=== PATIENT | female | born 1950 | race Caucasian/White ===

== ENCOUNTER 2019-09-20 08:20 | Outpatient (CLI) | payer MEDICARE, SELFPAY ==
--- NOTE | ~2019-09-20 | XR_ITS ---
EXAMINATION: XR knee RT min 4V DATE: 09/20/2019 09:19 INDICATION: Right knee pain and swelling. TECHNIQUE: 4 views of right knee were obtained. COMPARISON: None. FINDINGS: Bone alignment is normal. No fracture. There is mild tricompartmental osteoarthritis. There is a small knee joint effusion. IMPRESSION: 1. Mild right knee osteoarthritis. 2. Small right knee joint effusion. Reviewed, dictated and finalized at location A.
== END 2019-09-20 08:21 | disposition home or self-care (01) ==
PROVIDERS: PCP Family Medicine; Visit Provider Family Medicine
DX: M25.561 Pain in right knee (principal); M79.89 Other specified soft tissue disorders; M17.11 Unilateral primary osteoarthritis, right knee; M25.461 Effusion, right knee
CPT/HCPCS: 73564

== ENCOUNTER → 2021-12-21 13:16 | Outpatient (CLI) | payer MEDICARE, SELFPAY ==
--- NOTE | ~2021-12-21 | DEXA_ITS ---
Bone Density Report Name: DENG DOWLING Age: 71 Sex: Female Ethnicity: White Date of : 1950 Indication: postmenopausal; screening for osteoporosis; height loss; hysterectomy; Referring Provider: ALONSO CHACKO Study: Bone densitometry was performed. Exam Date: December 21, 2021 Accession number: [id number] Bone Density: Region BMD T-score Z-score Classification AP Spine (L1-L4) 0.825 -2.0 0.1 Osteopenia Femoral Neck (Left) 0.670 -1.6 0.2 Osteopenia Total Hip (Left) 0.783 -1.3 0.2 Osteopenia Femoral Neck (Right) 0.727 -1.1 0.7 Osteopenia Total Hip (Right) 0.792 -1.2 0.3 Osteopenia Total Hip Mean 0.788 -1.3 0.3 Osteopenia World Health Organization criteria for BMD impression classify patients as: Normal (T-score at or above -1.0), Osteopenia (T-score between -1.0 and -2.5), or Osteoporosis (T-score at or below -2.5). 10-year Fracture Risk(1): Major Osteoporotic Fracture 10% Hip Fracture 1.6% Reported Risk Factors: [place] (), Neck BMD=0.670, BMI=30.7 (1) FRAX(R) Version 3.08. Fracture probability calculated for an untreated patient. Fracture probability may be lower if the patient has received treatment. Clinical Information Provided by Patient: Has used the following medications: Vitamin D, Calcium Has the following medical conditions: Hysterectomy Patient maximum height was 63.78 Menopause Age: 50 No regular weight bearing exercise Drinks caffeinated beverages Onset of menses at age 14 Number of children 2 Impression: The patient has low bone mass, based on the Total Spine T-score. The patient has an estimated ten-year risk of hip fracture of 1.6% and an estimated ten-year risk of major fracture of 10%, based on the WHO FRAX algorithm. Discussion: BONE DENSITY IS LOW AT ONE OR MORE SKELETAL SITES. This patient's lowest T-score is low at one or more skeletal sites. It meets the World Health Organization's (WHO) criteria for ?low bone mass? (T-score between -1.0 and -2.5). The patient's 10-year risk of fracture as calculated by FRAX is less than the threshold where pharmacological therapy is recommended by the National Osteoporosis Foundation (NOF). However, all treatment decisions require clinical judgment and consideration of individual patient factors, including patient preferences, comorbidities, previous drug use, risk factors not captured in the FRAX model (e.g., frailty, falls, vitamin D deficiency, increased bone turnover, interval significant decline in bone density) and possible under or overestimation of fracture risk by FRAX. The patient should follow a healthful lifestyle (good nutrition with adequate calcium and vitamin D, and appropriate weight-bearing exercise). Follow-Up: Consider repeating this study in 2 to 3 years to reassess this patient's status, or
== END ==
PROVIDERS: PCP Family Medicine; Visit Provider Nurse Practitioner Family
DX: M85.88 Other specified disorders of bone density and structure, other site (principal); M85.852 Other specified disorders of bone density and structure, left thigh; M85.851 Other specified disorders of bone density and structure, right thigh
CPT/HCPCS: 77080

== ENCOUNTER → 2022-06-01 10:17 | Outpatient (CLI) | payer MEDICARE, SELFPAY ==
--- NOTE | ~2022-06-01 | XR_ITS ---
EXAMINATION: XR chest 2V 06/01/2022 10:57 INDICATION: Chronic cough PROCEDURE: 2 view chest COMPARISON: 10/17/2018 FINDINGS: The lungs are clear. The cardiomediastinal silhouette is within normal limits. There are no pleural effusions. There is no pneumothorax suspected. There is thoracic spondylosis with accent uated kyphosis. IMPRESSION: 1: NO ACUTE CARDIOPULMONARY DISEASE. Reviewed, dictated and finalized at location A. STRIPPER
== END ==
PROVIDERS: PCP Nurse Practitioner Family; Visit Provider Nurse Practitioner Family
DX: R05.3 Chronic cough (principal)
CPT/HCPCS: 71046

== ENCOUNTER → 2024-06-13 10:40 | Outpatient (CLI) | payer MEDICARE, SELFPAY | LOC: EXPTRAD 10:42 | PROVIDERS: PCP Nurse Practitioner Family; Visit Provider Nurse Practitioner Family | DX: M25.471 Effusion, right ankle (principal) | CPT/HCPCS: 73610 ==

== ENCOUNTER → 2025-02-25 16:17 | Outpatient (CLI) | payer MEDICARE, SELFPAY ==
--- NOTE | ~2025-02-25 | XR_ITS ---
EXAMINATION: XR shoulder RT min 2V, 02/25/2025 16:27 MANAGER FLIGHT OPERATIONS HISTORY: M25.511 - Pain in right shoulder COMPARISON: No comparisons available. Findings: No acute fracture or malalignment. Moderate to severe degenerative changes Soft tissues unremarkable. Impression: No acute fracture or malalignment. Reviewed, dictated and finalized at location P. GER FLIGHT OPERATIONS Impression: No acute fracture or malalignment.
--- OUTSIDE RECORDS SUMMARY | 2025-02-25 16:21 | XMS_ITS | Encounter Summary ---
Author Organization [facility] Address [address] [place] [address] Care Team Providers Care Superintendent Measurement Name Role Phone Robby Villavicencio MD Primary Care Provider [phone] Encounter Details Date Type Department Care Team (Late st Contact Info) Description 01/10/2006 Outpatient Historical [facility] Internal Medicine [place] [address] [place] [address] Robby Villavicencio MD [address] [place] [address] Social History Tobacco Use Types Packs/Day Years Used Date Smoking Tobacco: Never Assessed Comments Unknown Sex and Gender Information Value Date Recorded Sex Assigned at Not on file Legal Sex Female 4:49 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
--- OUTSIDE RECORDS SUMMARY | 2025-02-25 16:21 | XMS_ITS | Clinical Summary ---
Author Organization [facility] Address [address] [place] [address] Care Team Providers Care Dental Office Receptionist Name Role Phone Unavailable Primary Care Provider Unavailabl e Allergies No known active allergies Medications ALEVE PO 1 Tab daily. Active aspirin (CYRIL) 81 mg Oral Tab Take 81 mg by mouth daily. Active CENTRUM SILVER PO daily. Active CALCIUM+D 400-133.3 mg-unit Oral Tab Take by mouth 2 times daily. Active triamterene-hydr ochlorothiazide (MAXZIDE-25MG) 37.5-25 mg Oral TabIndications:E ssential hypertension, benign Take 1 Tab by mouth daily. 90 Tab 3 01/05/2009 Active metoprolol tartrate (LOPRESSOR) 50 mg Oral tabletIndication s:Essential hypertension, benign Take 1 Tab by mouth 2 times daily. 180 Tab 3 10/28/2009 Active Active Problems Problem Noted Date Diagnosed Date Pure hyperglyceridemia 01/07/2008 FHx: breast cancer in first degree relative 12/17 Overview (01/07/2008): Sister Essential hypertension, benign Immunizations Immunization Administration Dates Next Due (ADACEL/BOOSTRIX)(10 YR UP) TDAP VACCINE, 0.5ML, IM 08/15/2006 (TDVAX)(7 YRS UP) TETANUS AN D DIPHTHERIA TOXOIDS, ADSORBED (2 LF OF TETANUS TOXOID AND 2 LF OF DIPHTHERIA TOXOID), 0.5ML (PF), IM 01/04/2004,07/27/1992 Hepatitis B Vaccine 12/16/2006,07/16/2006,2006 Influenza Seasonal Unspecifi ed Formulation IM 01/15/2007 Family History Medical History Relation Name Comments High Cholesterol Brother 1 brother 1 Hypertension Brother 2 brother 2 Thyroid Disease Brother 2 brother 2 High Cholesterol Brother 3 Healthy Daughter Other Daughter allergic rhinit is Diabetes Father Thyroid Disease Mother Breast Cancer Sister 1 50 Healthy Son Other Son allergic rhinit is Relation Name Status Comments Brother 1 brother 1 Alive Brother 2 brother 2 Alive Brother 3 Alive pancreatitis Brother 4 Alive Brother 5 Alive Brother 6 Alive Daughter Alive Father Alive Mother Alive Sister 1 50 Alive Sister 2 Alive Sister 3 Alive Sister 4 Alive Sister 5 Alive Son Alive Social History Tobacco Use Types Packs/Day Years Used Date Smoking Tobacco: Never Alcohol Use Standard Drinks/Week Comments No 0 (1 standard drink = 0.6 oz pur e alcohol) Comments No Sex and Gender Information Value Date Recorded Sex Assigned at Not on file 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 Gender Identity Not on file Sexual Orientation Not on file Occupation Industry Job Start Date Job End Date Not on file Not on file Not on file Not on file Last Filed Vital Signs Vital Sign Reading Time Taken Comments Blood Pressure 132/90 07/14/2009 8:25 AM CDT Pulse 60 07/14/2009 8:25 AM CDT Temperature 36.8 C (98.3 F) 07/14/2009 8:25 AM CDT Respiratory Rate - - Oxygen Saturation - - Inhaled Oxygen Concentration - - Weight 75.8 kg (167 lb) 07/14/2009 8:25 AM CDT Height 162.6 cm (5' 4) 07/14/2009 8:25 AM CDT Body Mass Index 28.67 07/14/2009 8:25 AM CDT Plan of Treatment Health Maintenance Due Date Last Done Comments FIT-DNA Q 3 years 1996 Flex Sig/CT Colonography Q 5 years 1996 PNEUMOCOCCAL VACCINE 50+ YEA RS (1 of 1 - PCV) 2001 ZOSTER VACCINE (1 of 2) 2001 FIT/FOBT Q 1 year 01/28/2005 01/29/2004 BREAST CANCER SCREENING 04/17/2010 04/17/19 10, 03/17/2008, 04/04/2007, Additional history exists COLORECTAL SCREENING 04/25/2015 04/25/2005 Colorectal Cancer Screening 04/25/2015 OSTEOPOROSIS SCREENING 2016 DTAP/TDAP/TD VACCINES (2 - T d or Tdap) 08/15/2016 08/15/2006, 01/04/2004, 07/27/1992 INFLUENZA VACCINE (#1) 2024 01/15/2007 RSV VACCINE (60+ or ) (1 - 1-dose 75+ series) 2026 Insurance [facility] [employer] PPO [id number]
--- OUTSIDE RECORDS SUMMARY | 2025-02-25 16:21 | XMS_ITS | Encounter Summary ---
Author Organization [facility] Address [address] [place] [address] Care Team Providers Care Pharmacovigilance Specialist Name Role Phone Robby Villavicencio MD Primary Care Provider [phone] Encounter Details Date Type Department Care Team (Late st Contact Info) Description 05/01/2000 Outpatient Historical [facility] Internal Medicine [employer] [address] [place] [address] Robby Villavicencio MD [address] [place] [address] Social History Tobacco Use Types Packs/Day Years Used Date Smoking Tobacco: Never Assessed Comments Unknown Sex and Gender Information Value Date Recorded Sex Assigned at Not on file Legal Sex Female 4:49 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
--- OUTSIDE RECORDS SUMMARY | 2025-02-25 16:21 | XMS_ITS | Encounter Summary ---
Author Organization [facility] Address 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
--- OUTSIDE RECORDS SUMMARY | 2025-02-25 16:21 | XMS_ITS | Clinical Summary ---
Author Organization [facility] Address [address] [place] [address] Care Team Providers Care Automatic Vulcanizing Operator Name Role Phone Rogers Smith MD Primary Care Provider [phone] Source Comments [facility],non-owned Affiliates and Associated Physician Practices is amultiple site organization consisting of ambulatory clinics and hospital sitesin [place], [place], [place] and [place]. This disclosure is being madepursuant to the Care Everywhere program and may not contain all information available regarding this patient. Last updated 18.[facility] Allergies No known active allergies Medications * Be aware that medications may not be up to date on this document. Alwaysverify current medications with the patient. metoprolol tartrate IR (LOPRESSOR) 50 MG tablet Take 1 (one) tablet by mouth 2 times daily Active aspirin EC (ECOTRIN) 81 MG tablet Take 81 mg by mouth once daily. Active calcium-vitamin D (CALTRATE PLUS D) 600-200 MG-UNIT tablet Take 1 (one) tablet by mouth once daily Active multivitamin daily (THERAGRAN) tablet Take 1 (one) tablet by mouth daily with food Active Cetirizine HCl (ZYRTEC ALLERGY PO) Take 1 tablet by mouth once daily Active montelukast (SINGULAIR) 10 MG tablet Take 1 (one) tablet by mouth once daily Active btpui-3-ffjg ethyl esters (LOVAZA) 1 G capsule Take 1 (one) capsule by mouth 4 times daily 4000 mg Active Cholecalciferol (VITAMIN D) 2000 UNITS capsule Take 5,000 Units by mouth once daily Active omeprazole (PRILOSEC) 40 MG capsule Take 1 (one) capsule by mouth once daily 11 10/04/2018 Active lisinopril (PRINIVIL; ZESTRIL) 20 MG tablet Take 1 tablet by mouth once daily 09/18/2019 Active escitalopram (LEXAPRO) 20 MG tablet 02/08/2021 Active albuterol HFA (Proventil; Ventolin; Proair) 108 (90 Base) MCG/ACT inhaler Inhale 2 (two) puffs by mouth every 4 hours as needed 12/27/2023 Active Breo Ellipta 100-25 MCG/ACT inhaler Inhale 1 (one) puff by mouth once daily 06/12/2024 Active losartan (Cozaar) 50 MG tablet Take 1 (one) tablet by mouth once daily 06/14/2024 Active tacrolimus (Protopic) 0.1 % ointmentIndicat ions:Allergic contact dermatitis due to other agents Apply to affected area two times daily. 30 days supply. 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 Garcia, repeat colonoscopy in 10 years, 2024 MVP (mitral valve prolapse) Encounters Date Type Department Care Team Description 12/23/2024 10:45 AM CDT - 12/23/2024 11:59 PM CDT Hospital Encounter [facility] [address] [place] [id number] Rogers Smith MD Discharge Disposition: Home or Self Care 12/23/2024 Travel from Last 3 Months Immunizations Immunization Administration Dates Next Due INFLUENZA VACCINE, TRIV. (AF LURIA, FLUZONE TRIVALENT; 6MO+) (IIV3) 01/12/2009,01/15/2007 Covid Pfizer primary monoval ent 12+ yr 0.3mL Purple cap 01/22/2021,06/26/2020,05/29/2020 HEP B VACCINE, ADULT 3 DOSE 12/16/2006, 7,06/15/2006 HepB Unspecified formulation 01/11/2007,08/11/19 07,07/06/2006 INFLUENZA VACCINE 02/06/2021 TDAP (7yrs+) 08/15/2006 Td (Adult), 2 Lf Tetanus Tox oid, Adsorbed, Pf 01/04/2004,07/27/1992 iNFLUENZA VACCINE, RECOM-ANNE, QUADR. (FLUBLOCK QUADRIVALENT; 18Y+) (RIV4) 01/31/2019 Family History Medical History Relation Name Comments Diabetes - Type 2 Brother Other - Endocrine Brother pancreatit is Cancer - Skin, Melanoma Daughter Diabetes - Type 2 Father Cancer - Lung Mother CVA Paternal Grandfather Cancer - Liver Paternal Grandmother Cancer - Breast Sister Relation Name Status Comments Brother Daughter Father Mother Paternal Grandfather Paternal Grandmother Sister Social History Tobacco Use Types Packs/Day Years Used Date Smoking Tobacco: Never Smokeless Tobacco: Never Alcohol Use Standard Drinks/Week Comments No 0 (1 standard drink = 0.6 oz pur e alcohol) Comments No Sex and Gender Information Value Date Recorded Sex Assigned at Not on file Legal Sex Female 6:23 AM BEFORE SCHOOL BABYSITTER Gender Identity Female 12/15/2023 11:16 AM CDT Sexual Orientation Not on file Last Filed Vital Signs Vital Sign Reading Time Taken Comments Blood Pressure 110/70 03/16/2021 1:27 PM BEFORE SCHOOL BABYSITTER Pulse 80 01/01/2016 1:42 PM CDT Temperature 36.9 C (98.5 F) 10/09/2015 2:20 PM CDT Respiratory Rate 14 01/01/2016 1:42 PM CDT Oxygen Saturation 96% 01/01/2016 1:42 PM CDT Inhaled Oxygen Concentration - - Weight 73 kg (161 lb) 12/23/2024 10:58 AM CDT Height 160 cm (5' 3) 12/23/2024 10:58 AM CDT Body Mass Index 28.52 12/23/2024 10:58 AM CDT Plan of Treatment Upcoming Encounters Date Type Department Care Team (Late st Contact Info) Description 06/25/2025 12:50 PM CDT Office Visit [facility] - Dermatology [address] [place] [address], [place] [address] Angelique Carson MD [address] [facility] [place] [id number] Health Maintenance Due Date Last Done Comments BONE DENSITY TESTING 1950 COLOGUARD (AGES 45-75) - COLON CA SCREENING 1950 CT COLONOGRAPHY - COLON CA SCREENING 1950 FIT - COLON CA SCREENING 1950 FLEX SIG - COLON CA SCREENING 1950 PNEUMOCOCCAL VACCINE 50+ (1 of 1 - PCV) 2001 ZOSTER VACCINE (1 of 2) 2001 DTAP/TDAP/TD VACCINES (2 - Td or Tdap) 08/15/2016 08/15/2006, 01/04/2004, 07/27/1992 LIPID TESTING 02/21/2021 02/22/2016, 02/15, 02/24/2014, Additional history exists DEPRESSION SCREENING 04/17/2024 MEDICARE AWV CALENDAR YEAR 2024 COLON MONITORING 08/04/2024 08/04/2014, , 08/04/2014 COLONOSCOPY - COLON CA SCREENING 08/04/2024 08/04/2014, 08/04/2014, 08/04/2014 Colorectal Cancer Screening 08/04/2024 COVID-19 VACCINE ( season) 2024 01/22/2021, 06/26/2020, 05/29/2020 INFLUENZA VACCINE (#1) 2024 , 01/31/2019, 01/12/2009, Additional history exists Respiratory Syncytial Virus (RSV) Vaccine Pt: or over 60 yrs (1 - 1-dose 75+ series) 2026 MAMMOGRAM 12/23/2026 12/23/2024, 09/2023, 12/20/2022, Additional history exists HEPATITIS B VACCINE Completed 01/11/2007, 12/16/2006, 08/10/2006, Additional history exists HEPATITIS C SCREENING Completed 12/07/2009 HIB VACCINE Aged Out No longer eligi ble based on patient's age to complete this topic HPV VACCINE Aged Out No longer eligi ble based on patient's age to complete this topic MENINGOCOCCAL (Group B) VACCINE SHARED DECISION-MAKING Aged Out No longer eligible based on patient's age to complete this topic MENINGOCOCCAL GROUPS A/C/Y/W VACCINE Aged Out No longer eligible based on patient's age to complete this topic Procedures Procedure Name Priority Date/Time Associated Diagnosis Comments MAMMO BILAT SCREENING W PORTER Routine 12/23/2024 11:33 AM CDT Encounter for screening mammogram for malignant neoplasm of breast LIPID PROFILE Routine 02/22/2016 11:10 AM BEFORE SCHOOL BABYSITTER ENDOSCOPY, COLON, SCREENING Routine 08/04/2014 10:49 AM CDT HEPATITIS C ANTIBODY Routine 12/07/2009 12:10 PM CDT from Last 3 Months or Most Recently Relevant to Health Maintenance Results * Mammo Bilat Screening W Porter (12/23/2024 11:33 AM CDT) Anatomical Region Laterality Modality Breast Bilateral Mammography 12/23/2024 11:3 6 AM CDT Impressions 12/23/2024 12:33 PM CDT IMPRESSION: No mammographic evidence of malignancy. RECOMMENDATION: Screening mammography in one year, pending no interval breast concerns. Patient will receive the examination results by lay letter. OVERALL ASSESSMENT: BI-RADS CATEGORY 1: NEGATIVE. > Dictated by Ru Castillo DO (radiology technologist) 12/23/2024 11:38 AM. > Dictated by Special Education Paraprofessional I, Melissa Nash MD, FACR have personally reviewed and interpreted this examination/study. > Interpreting Provider: Melissa Nash MD, FACR on 12/23/2024 12:33 PM Narrative 12/23/2024 12:33 PM CDT EXAMINATIONS: BILATERAL DIGITAL SCREENING MAMMOGRAM AND BILATERAL BREAST TOMOSYNTHESIS LOCATION: [facility] EXAM DATE: 12/23/2024 HISTORY: Screening. Family history of breast cancer in sister at age 50. RISK ASSESSMENT CALCULATION: Patient completed a breast cancer risk assessment during their appointment 12/23/2024. Based upon the information provided and the mammographic breast density, their calculated lifetime risk of developing breast cancer is < 8% (Average Risk <15%; Intermediate / Moderate Risk 15-19; High Risk > 20%). Risk assessment based upon the Tyrer-Cuzick v8 model. COMPARISON: Comparison is made to prior mammograms back to 2016. TECHNIQUE: Tomosynthesis (3D) and reconstructed synthetic 2-D images acquired and reviewed in the bilateral craniocaudal and mediolateral oblique projections. A total of 8 images obtained. Transpara AI was utilized in the interpretation. BREAST PARENCHYMAL COMPOSITION: Category B: There are scattered areas of fibroglandular density. FINDINGS: There are no suspicious findings or evidence of malignancy on mammography. There is no significant change from prior. Rogers Smith MD MAMMO ORDERABLES Final Result * (ABNORMAL) LIPID PROFILE (02/22/2016 11:10 AM BEFORE SCHOOL BABYSITTER) Cholesterol Total 160 <200 mg/dL [facility] HDL 38(L) >40 mg/dL [facility] Comment: ATP III Classification of HDL Cholesterol: <40 mg/dL: Considered a major risk factor. >60 mg/dL: Considered a negative risk factor. LDL Calculated 49 <100 mg/dL [facility] Comment: ATP III Classification of LDL Cholesterol: <100 mg/dL: Optimal 100 - 129 mg/dL: Near Optimal/Above Optimal 130 - 159 mg/dL: Borderline High 160 - 189 mg/dL: High >190 mg/dL: Very High Triglycerides 363(H) <150 mg/dL [facility] Comment: ATP III Classification of Triglycerides: <150 mg/dL: Normal 150 - 199 mg/dL: Borderline High 200 - 400 mg/dL: High >500 mg/dL: Very High Blood specimen (specimen) BLOOD SPECIMEN / Unknown 02/22/2016 11:10 AM BEFORE SCHOOL BABYSITTER 02/22/2016 2:44 PM BEFORE SCHOOL BABYSITTER Historical Provider LAB - CHEMISTRY ORDERABLE S Final Result [address] [phone] * ENDOSCOPY, COLON, SCREENING (08/04/2014 10:49 AM CDT) Report Endoscopy POC _ Patient Name: Valerie Meredith Procedure Date: 08/04/2014 10:49 AM Date of : 1950 Admit Type: Outpatient Age: 64 Gender: Female Attending MD: Roderick Garcia MD _ Procedure: Colonoscopy Indications: Screening for colorectal malignant neoplasm Providers: Roderick Garcia MD (Doctor), Patricia Peralta RN, Nunu Kebede Referring MD: Nandini Laureano MD (Referring MD) Medicines: Monitored Anesthesia Care Complications: No immediate complications. _ Procedure: Pre-Anesthesia Assessment: - ASA Grade Assessment: II - A patient with mild systemic disease. - Airway Examination: Mallampati Class I (tonsillar pillars visualized). After I obtained informed consent, the scope was passed under direct vision. Throughout the procedure, the patient's blood pressure, pulse, and oxygen saturations were monitored continuously. The Colonoscope was introduced through the anus and advanced to the cecum, identified by appendiceal orifice and ileocecal valve. The colonoscopy was performed without difficulty. The patient tolerated the procedure well. The quality of the bowel preparation was good. Impression: - One 6 mm polyp in the descending colon. Resected and retrieved. Findings: A sessile polyp was found in the descending colon. The polyp was 6 mm in size. The polyp was removed with a cold biopsy forceps. Resection and retrieval were complete. Estimated blood loss: none. _ Recommendation: - Repeat colonoscopy in 5-10 years for surveillance based on pathology results. Procedure Code(s): --- Professional --- 35838, Colonoscopy, flexible, proximal to splenic flexure; with biopsy, single or multiple --- Technical --- 69462, Colonoscopy, flexible, proximal to splenic flexure; with biopsy, single or multiple Diagnosis Code(s): --- Professional --- V76.51, Special screening for malignant neoplasms of colon 211.3, Benign neoplasm of colon --- Technical --- V76.51, Special screening for malignant neoplasms of colon 211.3, Benign neoplasm of colon CPT copyright 2013 [employer]. All rights reserved. The codes documented in this report are preliminary and upon compliance examiner review may be revised to meet current compliance requirements. Roderick Garcia MD 08/04/2014 11:25 AM This report has been signed electronically. Number of Addenda: 0 Note Initiated On: 08/04/2014 10:49 AM [facility] 08/04/2014 10:4 9 AM CDT us Roderick Garcia MD GI PROCEDURE ORDERABLES Edited R esult - Final [facility] * HEPATITIS C ANTIBODY (12/07/2009 12:10 PM CDT) Hepatitis C Antibody NEGATIVE NEGATIVE [facility] Comment: Anti-HCV screen indicates no serologic evidence of past or current infection with Hepatitis C Virus. 12/07/2009 12:1 0 PM CDT 12/07/2009 12:30 PM CDT Concepcion Garcia MD LAB - CHEMISTRY ORDERA BLES Final Result [address] [address], [facility] [phone] from Last 3 Months or Most Recently Relevant to Health Maintenance Insurance [employer] MEDICARE ADV HMO & PPO Care Teams Automatic Vulcanizing Operator Relationship Specialty Start Date End Date Rogers Smith MD [address] [place] [address] PCP - General Family Medicine 03/16/21
--- OUTSIDE RECORDS SUMMARY | 2025-02-25 16:21 | XMS_ITS | Encounter Summary ---
Author Organization [facility] Address [address] [place] [address] Care Team Providers Care Fourdrinier Machine Tender Name Role Phone Robby Villavicencio MD Primary Care Provider [phone] Encounter Details Date Type Department Care Team (Late st Contact Info) Description 12/03/2001 Outpatient Historical [facility] Internal Medicine [place] [address] [place] [address] Robby Villavicencio MD [address] [place] [address] Social History Tobacco Use Types Packs/Day Years Used Date Smoking Tobacco: Never Assessed Comments Unknown Sex and Gender Information Value Date Recorded Sex Assigned at Not on file 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
--- OUTSIDE RECORDS SUMMARY | 2025-02-25 16:22 | XMS_ITS | Encounter Summary ---
Author Organization [facility] Address 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
--- OUTSIDE RECORDS SUMMARY | 2025-02-25 16:22 | XMS_ITS | Encounter Summary ---
Author Organization [facility] Address 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
--- OUTSIDE RECORDS SUMMARY | 2025-02-25 16:22 | XMS_ITS | Encounter Summary ---
Author Organization [facility] Address 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
--- OUTSIDE RECORDS SUMMARY | 2025-02-25 16:22 | XMS_ITS | Encounter Summary ---
Author Organization [facility] Address 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
--- OUTSIDE RECORDS SUMMARY | 2025-02-25 16:22 | XMS_ITS | Encounter Summary ---
Author Organization [facility] Address [address] [place] [address] Care Team Providers Care Power Digger Operator Name Role Phone Robby Villavicencio MD Primary Care Provider [phone] Encounter Details Date Type Department Care Team (Late st Contact Info) Description 11/05/1998 Outpatient Historical [facility] Mcleod MD NO ADDRESS ON FILE Social History Tobacco Use Types Packs/Day Years Used Date Smoking Tobacco: Never Assessed Comments Unknown Sex and Gender Information Value Date Recorded Sex Assigned at Not on file Legal Sex Female 4:49 AM WARE DRESSER Gender Identity Not on file Sexual Orientation Not on file documented as of this encounter Plan of Treatment Not on file documented as of this encounter Visit Diagnoses Not on filedocumented in this encounter Care Teams Power Digger Operator Relationship Specialty Start Date End Date Robby Villavicencio MD [address] [place] [address] PCP - General 02/06/06 01/13/10 documented as of this encounter
--- OUTSIDE RECORDS SUMMARY | 2025-02-25 16:22 | XMS_ITS | Encounter Summary ---
Author Organization [facility] Address [address] [place] [address] Care Team Providers Care Smelting Engineer Name Role Phone Robby Villavicencio MD Primary Care Provider [phone] Encounter Details Date Type Department Care Team (Late st Contact Info) Description 12/30/2003 Outpatient Historical [facility] Internal Medicine [place] [address] [place] [address] Robby Villavicencio MD [address] [place] [address] Social History Tobacco Use Types Packs/Day Years Used Date Smoking Tobacco: Never Assessed Comments Unknown Sex and Gender Information Value Date Recorded Sex Assigned at Not on file Legal Sex Female 4:49 AM SHAKE FEEDER Gender Identity Not on file Sexual Orientation Not on file documented as of this encounter Plan of Treatment Not on file documented as of this encounter Visit Diagnoses Not on filedocumented in this encounter Care Teams Smelting Engineer Relationship Specialty Start Date End Date Robby Villavicencio MD [address] [place] [address] PCP - General 02/06/06 01/13/10 documented as of this encounter
--- OUTSIDE RECORDS SUMMARY | 2025-02-25 16:22 | XMS_ITS | Encounter Summary ---
Author Organization [employer] [facility] Address [address] [place] [address] Care Team Providers Care Conditioner Tumbler Operator Name Role Phone Robby Villavicencio MD Primary Care Provider [phone] Encounter Details Date Type Department Care Team (Latest Contact Info) Description 02/06/2006 Outpatient Historical [facility] [place] ([place]) Robby Villavicencio MD [address] [place] [phone] Elevated Blood Pressure Reading without Diagnosis of Hypertension (Primary Dx) Social History Tobacco Use Types Packs/Day Years Used Date Smoking Tobacco: Never Assessed Comments Unknown Sex and Gender Information Value Date Recorded Sex Assigned at Not on file 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 Sex Female 4:49 AM TABLE SETTER Gender Identity Not on file Sexual Orientation Not on file documented as of this encounter Plan of Treatment Not on file documented as of this encounter Procedures Procedure Name Priority Date/Time Associated Diagnosis Comments TSH REFLEXIVE Routine 02/06/2006 8:24 AM CDT CBC WITH DIFFERENTIAL Routine 02/06/2006 8:24 AM CDT CBC WITH DIFFERENTIAL Routine 02/06/2006 8:24 AM CDT URINALYSIS W/REFLEX MICROSCOPIC Routine 02/06/2006 8:24 AM CDT LIPID PANEL Routine 02/06/2006 8:24 AM CDT COMPREHENSIVE METABOLIC PANEL Routine 02/06/2006 8:24 AM CDT documented in this encounter Results * (ABNORMAL) URINALYSIS (02/06/2006 8:24 AM CDT) COLOR UA Yellow INTERFACE SYSTEM CLARITY UA Clear Clear INTERFACE SYSTEM SPECIFIC GRAVITY UA 1.017 1.001 - 1.035 INTERFACE SYSTEM PH UA 5.5 5.0 - 8.0 INTERFACE SYSTEM LEUKOCYTE ESTERASE UA Negative Negative INTERFACE SYSTEM NITRITE UA Negative Negative INTERFACE SYSTEM PROTEIN UA Negative Negative INTERFACE SYSTEM GLUCOSE UA Negative Negative INTERFACE SYSTEM KETONES UA Negative Negative INTERFACE SYSTEM UROBILINOGEN UA <1 <=1 mg/dL INTE RFACE SYSTEM BILIRUBIN UA Negative Negative INTERFA CE SYSTEM BLOOD UA Trace(A) Negative INTERFACE SYSTEM WBC UA <1 0 - 5 /HPF INTERFACE SYSTEM RBC UA 1 0 - 4 /HPF INTERFACE SYSTEM EPITHELIAL CELLS, URINE 5-10 /HPF INTERFACE SYSTEM 02/06/2006 8:24 AM CDT Robby Villavicencio MD URINE ORDERABLES Final Result Performing Organization Address [facility] Phone Number INTERFACE SYSTEM Refer to clinic/hospital department * CBC WITH DIFFERENTIAL (02/06/2006 8:24 AM CDT) NEUTROPHILS 65 45 - 70 % INTERFAC E SYSTEM LYMPHOCYTES 23 16 - 45 % INTERFAC E SYSTEM MONOCYTES 8 3 - 13 % INTERFACE SYSTEM EOSINOPHILS 3 0 - 7 % INTERFAC E SYSTEM BASOPHILS 1 0 - 2 % INTERFACE SYSTEM NEUTROPHIL ABSOLUTE 5.57 1.90 - 7.00 K/uL INTERFACE SYSTEM LYMPHOCYTE ABSOLUTE 1.94 0.70 - 4.50 K/uL INTERFACE SYSTEM MONOCYTE ABSOLUTE 0.70 0.10 - 1.30 K/uL INTERFACE SYSTEM EOSINOPHIL ABSOLUTE 0.27 0.00 - 0.70 K/uL INTERFACE SYSTEM BASOPHILS ABSOLUTE 0.05 0.00 - 0.20 K/uL INTERFACE SYSTEM 02/06/2006 8:24 AM CDT Robby Villavicencio MD HEMATOLOGY ORDERABLES Final Re sult Performing Organization Address [facility] de Phone Number INTERFACE SYSTEM Refer to clinic/hospital department * (ABNORMAL) CBC WITH DIFFERENTIAL (02/06/2006 8:24 AM CDT) WBC 8.5 4.0 - 9.8 K/uL INTERFACE SYSTEM RBC 4.67 3.90 - 4.90 M/uL INTERFACE SYSTEM HEMOGLOBIN 13.5 11.8 - 14.8 g/dL INTERFACE SYSTEM HEMATOCRIT 41.1 35.5 - 44.0 % INTERFACE SYSTEM MCV 88.0 82.0 - 99.0 fL INTERFACE SYSTEM MCH 28.9 27.2 - 32.6 pg INTERFACE SYSTEM MCHC 32.8 31.5 - 35.5 % INTERFACE SYSTEM RDW 12.7 11.5 - 14.5 % INTERFACE SYSTEM RDW-STDEV 40.3 37.1 - 48.7 fL INTERFACE SYSTEM PLATELETS 413(H) 140 - 350 K/uL INTERFACE SYSTEM MPV 11.5 9.3 - 12.4 fL INTERFACE SYSTEM 02/06/2006 8:24 AM CDT Robby Villavicencio MD HEMATOLOGY ORDERABLES Final Re sult Performing Organization Address [facility] de Phone Number INTERFACE SYSTEM Refer to clinic/hospital department * TSH REFLEXIVE (02/06/2006 8:24 AM CDT) TSH 1.95 0.27 - 4.20 uU/mL INTERFACE SYSTEM 02/06/2006 8:24 AM CDT Robby Villavicencio MD CHEMISTRY ORDERABLES Final Res ult Performing Organization Address [facility] Co de Phone Number INTERFACE SYSTEM Refer to clinic/hospital department * (ABNORMAL) LIPID PANEL (02/06/2006 8:24 AM CDT) CHOLESTEROL 174 100 - 199 mg/dL INTERFACE SYSTEM TRIGLYCERIDE 181(H) 10 - 149 mg/dL INTERFACE SYSTEM HDL 65(H) 40 - 59 mg/dL INTERFACE SYSTEM CHOL/HDL RATIO 2.7 2.0 - 5.0 INTER FACE SYSTEM LDL CALCULATED 73 <=99 mg/dL INTERFACE SYSTEM LIPID PANEL COMMENT See Below INTERFACE SYSTEM Comment: The adult ATP and pediatric NCEP classifications for lipids are available on the [facility] Intranet at: [email or web address] Select: Lab Policies and Procedures Select: Reference Ranges - Lipids 02/06/2006 8:24 AM CDT Robby Villavicencio MD CHEMISTRY ORDERABLES Final Res ult Performing Organization Address [facility] Co de Phone Number INTERFACE SYSTEM Refer to clinic/hospital department * COMPREHENSIVE METABOLIC PANEL (02/06/2006 8:24 AM CDT) GLUCOSE 83 65 - 99 mg/dL INTERFACE SYSTEM CREATININE 0.7 0.4 - 1.2 mg/dL INTERFACE SYSTEM CALCIUM 9.2 8.4 - 10.2 mg/dL INTERFACE SYSTEM ALKALINE PHOSPHATASE 75 35 - 104 U/L INTERFACE SYSTEM AST 19 12 - 32 U/L INTERFACE SYSTEM ALT 15 0 - 31 U/L INTERFACE SYSTEM TOTAL PROTEIN 7.5 6.3 - 8.6 g/dL INTERFACE SYSTEM ALBUMIN 4.2 3.4 - 4.8 g/dL INTERFACE SYSTEM BILIRUBIN TOTAL 0.5 0.2 - 1.0 mg/dL INTERFACE SYSTEM BUN 13 6 - 20 mg/dL INTERFACE SYSTEM SODIUM 142 135 - 145 mmol/L INTERFACE SYSTEM POTASSIUM 4.4 3.5 - 4.9 mmol/L INTERFACE SYSTEM CHLORIDE 104 96 - 108 mmol/L INTERFACE SYSTEM CO2 29 22 - 30 mmol/L INTERFACE SYSTEM 02/06/2006 8:24 AM CDT Robby Villavicencio MD CHEMISTRY ORDERABLES Final Res ult Performing Organization Address [facility] Co de Phone Number INTERFACE SYSTEM Refer to clinic/hospital department documented in this encounter Visit Diagnoses Diagnosis Elevated blood pressure reading without diagnosis of hypertension- Primary documented in this encounter Care Teams Conditioner Tumbler Operator Relationship Specialty Start Date End Date Robby Villavicencio MD [address] [place] [phone] PCP - General 02/06/06 01/13/10 documented as of this encounter
--- OUTSIDE RECORDS SUMMARY | 2025-02-25 16:22 | XMS_ITS | Encounter Summary ---
Author Organization [facility] Address [address] [place] [address] Care Team Providers Care Commercial Real Estate Appraiser Name Role Phone Robby Villavicencio MD Primary Care Provider Encounter Details Date Type Department Care Team (Late st Contact Info) Description 05/09/2006 Outpatient Historical [facility] Internal Medicine [place] [address] [place] [address] Robby Villavicencio MD [address] [place] [address] Social History Tobacco Use Types Packs/Day Years Used Date Smoking Tobacco: Never Assessed Comments Unknown Sex and Gender Information Value Date Recorded Sex Assigned at Not on file 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
--- OUTSIDE RECORDS SUMMARY | 2025-02-25 16:22 | XMS_ITS | Encounter Summary ---
Author Organization [employer] [facility] Address 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 Gender Identity Not on file Sexual Orientation Not on file documented as of this encounter Plan of Treatment Not on file documented as of this encounter Procedures Procedure Name Priority Date/Time Associated Diagnosis Comments BASIC METABOLIC PANEL Routine 01/03/2007 9:25 AM CDT documented in this encounter Results * (ABNORMAL) BASIC METABOLIC PANEL (01/03/2007 9:25 AM CDT) GLUCOSE 86 65 - 99 mg/dL INTERFACE SYSTEM CREATININE 0.90 0.51 - 0.95 mg/dL INTERFACE SYSTEM CALCIUM 8.7 8.4 - 10.2 mg/dL INTERFACE SYSTEM BUN 22(H) 6 - 20 mg/dL INTERFACE SYSTEM SODIUM 137 135 - 145 mmol/L INTERFACE SYSTEM POTASSIUM 3.6 3.5 - 4.9 mmol/L INTERFACE SYSTEM CHLORIDE 98 96 - 108 mmol/L INTERFACE SYSTEM CO2 32(H) 22 - 30 mmol/L INTERFACE SYSTEM GFR, >60 >=60 mL/min/1.7 sq meter INTERFACE SYSTEM GFR >60 >=60 mL/min/1.7 sq meter INTERFACE SYSTEM Comment: Estimated GFR rate interpretative information for both Americans and non- Americans is available on the [facility] Intranet at: [email or web address] Select: Lab Policies and Procedures Select: Reference Ranges - GFR 01/03/2007 9:25 AM CDT Robby Villavicencio MD CHEMISTRY ORDERABLES Edited INTERFACE SYSTEM Refer to clinic/hospital department documented in this encounter Visit Diagnoses Diagnosis Essential hypertension, benign- Primary documented in this encounter Care Teams Model And Mold Maker Relationship Specialty Start Date End Date Robby Villavicencio MD [address] [place] [phone] PCP - General 02/06/06 01/13/10 documented as of this encounter
--- OUTSIDE RECORDS SUMMARY | 2025-02-25 16:22 | XMS_ITS | Encounter Summary ---
Author Organization [facility] Address [address] [place] [address] Care Team Providers Care Industrial Staff Nurse Name Role Phone Robby Villavicencio MD Primary Care Provider [phone] Encounter Details Date Type Department Care Team (Late st Contact Info) Description 02/06/2006 Outpatient Historical [facility] Internal Medicine [place] [address] [place] [address] Robby Villavicencio MD [address] [place] [phone] Social History Tobacco Use Types Packs/Day Years Used Date Smoking Tobacco: Never Assessed Comments Unknown Sex and Gender Information Value Date Recorded Sex Assigned at Not on file 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
--- OUTSIDE RECORDS SUMMARY | 2025-02-25 16:22 | XMS_ITS | Encounter Summary ---
Author Organization [employer] Address [address] [place] [address] Care Team Providers Care Student Development Specialist Name Role Phone Robby Villavicencio MD Primary Care Provider Encounter Details Date Type Department Care Team (Late st Contact Info) Description 01/07/2008 Outpatient Historical [facility] [place] ([place]) Robby Villavicencio MD [address] [place] [phone] Essential Hypertension, Benign Social History Tobacco Use Types Packs/Day Years Used Date Smoking Tobacco: Never Alcohol Use Standard Drinks/Week Comments No 0 (1 standard drink = 0.6 oz pur e alcohol) Comments No Sex and Gender Information Value Date Recorded Sex Assigned at Not on file Legal Sex Female 4:49 AM ARMOR RECONNAISSANCE SPECIALIST Gender Identity Not on file Sexual Orientation Not on file documented as of this encounter Plan of Treatment Not on file documented as of this encounter Visit Diagnoses Diagnosis Essential hypertension, benign documented in this encounter Care Teams Student Development Specialist Relationship Specialty Start Date End Date Robby Villavicencio MD [address] [place] [phone] PCP - General 02/06/06 01/13/10 documented as of this encounter
--- OUTSIDE RECORDS SUMMARY | 2025-02-25 16:22 | XMS_ITS | Encounter Summary ---
Author Organization [facility] Address [address] [place] [address] Care Team Providers Care Exercise Physiologist Certified Name Role Phone Robby Villavicencio MD Primary Care Provider Encounter Details Date Type Department Care Team (Late st Contact Info) Description 11/27/2006 Outpatient Historical [facility] Internal Medicine [place] [address] [place] [address] Robby Villavicencio MD [address] [place] [phone] Social History Tobacco Use Types Packs/Day Years Used Date Smoking Tobacco: Never Assessed Comments Unknown Sex and Gender Information Value Date Recorded Sex Assigned at Not on file Legal Sex Female 4:49 AM SENIOR SAFETY MANAGEMENT CONSULTANT Gender Identity Not on file Sexual Orientation Not on file documented as of this encounter Plan of Treatment Not on file documented as of this encounter Visit Diagnoses Not on filedocumented in this encounter Care Teams Exercise Physiologist Certified Relationship Specialty Start Date End Date Robby Villavicencio MD [address] [place] [address] PCP - General 02/06/06 01/13/10 documented as of this encounter
--- OUTSIDE RECORDS SUMMARY | 2025-02-25 16:22 | XMS_ITS | Encounter Summary ---
Author Organization [facility] Address [address] [place] [address] Care Team Providers Care Cat Breeder Name Role Phone Robby Villavicencio MD Primary Care Provider Encounter Details Date Type Department Care Team (Late st Contact Info) Description 01/29/2004 Outpatient Historical [facility] Internal Medicine [place] [address] [place] [address] Robby Villavicencio MD [address] [place] [phone] Social History Tobacco Use Types Packs/Day Years Used Date Smoking Tobacco: Never Assessed Comments Unknown Sex and Gender Information Value Date Recorded Sex Assigned at Not on file Legal Sex Female 4:49 AM PREPARER Gender Identity Not on file Sexual Orientation Not on file documented as of this encounter Plan of Treatment Not on file documented as of this encounter Visit Diagnoses Not on filedocumented in this encounter Care Teams Cat Breeder Relationship Specialty Start Date End Date Robby Villavicencio MD [address] [place] [address] PCP - General 02/06/06 01/13/10 documented as of this encounter
--- OUTSIDE RECORDS SUMMARY | 2025-02-25 16:22 | XMS_ITS | Encounter Summary ---
Author Organization [facility] Address [address] [place] [address] Care Team Providers Care Thinner Sprayer Name Role Phone Robby Villavicencio MD Primary Care Provider [phone] Encounter Details Date Type Department Care Team (Late st Contact Info) Description 12/21/1999 Outpatient Historical [facility] Internal Medicine [place] [address] [place] [address] Robby Villavicencio MD [address] [place] [address] Social History Tobacco Use Types Packs/Day Years Used Date Smoking Tobacco: Never Assessed Comments Unknown Sex and Gender Information Value Date Recorded Sex Assigned at Not on file Legal Sex Female 4:49 AM 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
== END ==
LOC: EXPTRAD 16:20
PROVIDERS: PCP Nurse Practitioner Family; Visit Provider Nurse Practitioner Family
DX: M25.511 Pain in right shoulder (principal)
CPT/HCPCS: 73030

== ENCOUNTER 2025-04-06 07:40 | Outpatient (CLI) | payer MEDICARE, SELFPAY ==
--- NOTE | ~2025-04-06 | MR_ITS ---
EXAMINATION: MR shoulder RT wo con DATE: 04/06/2025 08:26 INDICATION: Right shoulder pain TECHNIQUE: Magnetic resonance imaging (MRI) of the right shoulder was performed without intravenous contrast. Sequences included axial PD-weighted FS FSE, coronal oblique PD-weighted FS FSE, coronal oblique T2-weighted FS FSE, sagittal PD-weighted FS FSE, and sagittal T1-weighted SE. COMPARISON: None. FINDINGS: Coracoacromial arch: The acromion undersurface is curved in morphology (type II) with small anterior subacromial spur at the insertion of the normal coracoacromial ligament. Moderate acromioclavicular osteoarthritis. Rotator cuff: Complete full-thickness tear of the supraspinatus tendon with 3 cm medial retraction of the right tear margin with moderate to severe tendinopathy extending 1.5 cm cm medial from the tear margin. The tear measures up to 2.5 cm AP slightly lateral to the level of the apex of the humeral head. There is m oderate subscapularis tendinopathy with irregular mild partial tear/fraying along the anterior margin of the tendon. The teres minor tendon is normal. Mild subscapularis tendinopathy without tear. There is secondary retraction and mild fatty atrophy of the supraspinatus muscle belly. Biceps tendon, glenoid labrum and glenohumeral cartilage: Complex tear of the superior glenoid labrum and biceps labral complex with avulsion and distal retraction of the long head biceps tendon to the level of the intertubercular groove. Remainder of the glenoid labrum is normal. There is partial thickness cartilage loss with smooth chondral surface along both the inferomedial and superolateral aspects of the humeral head as well as the cephalad aspect of the glenoid. Fluid: Small glenohumeral joint effusion which extends to the full-thickness rotator cuff tear to communicate with a small amount of fluid in the subacromial/subdeltoid bursa. No loose osteochondral bodies. Bones: Normal marrow signal with no fracture or pathologic marrow replacing process. Mild cystic change underlying the lesser tuberosity. IMPRESSION: 1. Complete full-thickness tear of the supraspinatus tendon with 3 cm medial retraction but only mild fatty atrophy suggesting this may be relatively recent. 2. Mild subscapularis and moderate infraspinatus tendinopathy without tears. 3. Tear of the superior glenoid labrum and biceps labral complex with avulsion and distal retraction of the long head biceps tendon. 4. Mild glenohumeral and moderate acromioclavicular osteoarthritis. Reviewed, dictated and finalized at location A. [place] EXPANSION SALES DIRECTOR IMPRESSION: 1. Complete full-thickness tear of the supraspinatus tendon with 3 cm medial re traction but only mild fatty atrophy suggesting this may be relatively recent. 2. Mild subscapularis and moderate infraspinatus tendinopathy without tears. 3. Tear of the superior glenoid labrum and biceps labral complex with avulsion and distal retraction of the long head biceps tendon. 4. Mild glenohumeral and moderate acromioclavicular osteoarthritis.
--- OUTSIDE RECORDS SUMMARY | 2025-04-06 07:43 | XMS_ITS | Encounter Summary ---
Author Organization [facility] Address 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
--- OUTSIDE RECORDS SUMMARY | 2025-04-06 07:43 | XMS_ITS | Encounter Summary ---
Author Organization [employer] [facility] Address 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
--- OUTSIDE RECORDS SUMMARY | 2025-04-06 07:43 | XMS_ITS | Encounter Summary ---
Author Organization [employer] Address [address] [place] [address] Care Team Providers Care Glue Machine Operator Name Role Phone Robby Villavicencio MD Primary Care Provider Encounter Details Date Type Department Care Team (Late st Contact Info) Description 01/07/2008 Outpatient Historical [facility] [place] ([place]) Robby Villavicencio MD [address] [place] [phone] Essential Hypertension, Benign Social History Tobacco Use Types Packs/Day Years Used Date Smoking Tobacco: Never Alcohol Use Standard Drinks/Week Comments No 0 (1 standard drink = 0.6 oz pur e alcohol) Comments No Sex and Gender Information Value Date Recorded Sex Assigned at Not on file 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
--- OUTSIDE RECORDS SUMMARY | 2025-04-06 07:43 | XMS_ITS | Encounter Summary ---
Author Organization [facility] Address [address] [place] [address] Care Team Providers Care Telephone Appointment Clerk Name Role Phone Robby Villavicencio MD Primary Care Provider Encounter Details Date Type Department Care Team (Late st Contact Info) Description 05/09/2006 Outpatient Historical [facility] Internal Medicine [place] [address] [place] [address] Robby Villavicencio MD [address] [place] [address] Social History Tobacco Use Types Packs/Day Years Used Date Smoking Tobacco: Never Assessed Comments Unknown Sex and Gender Information Value Date Recorded Sex Assigned at Not on file 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
--- OUTSIDE RECORDS SUMMARY | 2025-04-06 07:43 | XMS_ITS | Encounter Summary ---
Author Organization [employer] [facility] Address 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 Gender Identity Not on file Sexual Orientation [...] and non- Americans is available on the [facility] Intranet at: [email or web address] Select: Lab Policies and Procedures Select: Reference Ranges - GFR 01/03/2007 9:25 AM CDT Robby Villavicencio MD CHEMISTRY ORDERABLES Edited INTERFACE SYSTEM Refer to clinic/hospital department documented in this encounter Visit Diagnoses Diagnosis Essential hypertension, benign- Primary documented in this encounter Care Teams Street Inspector Relationship Specialty Start Date End Date Robby Villavicencio MD [address] [place] [phone] PCP - General 02/06/06 01/13/10 documented as of this encounter
--- OUTSIDE RECORDS SUMMARY | 2025-04-06 07:43 | XMS_ITS | Encounter Summary ---
Author Organization [facility] Address [address] [place] [address] Care Team Providers Care Grades 1 Through 5 Teacher Name Role Phone Robby Villavicencio MD Primary Care Provider [phone] Encounter Details Date Type Department Care Team (Late st Contact Info) Description 02/06/2006 Outpatient Historical [facility] Internal Medicine [place] [address] [place] [address] Robby Villavicencio MD [address] [place] [address] Social History Tobacco Use Types Packs/Day Years Used Date Smoking Tobacco: Never Assessed Comments Unknown Sex and Gender Information Value Date Recorded Sex Assigned at Not on file 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
--- OUTSIDE RECORDS SUMMARY | 2025-04-06 07:43 | XMS_ITS | Encounter Summary ---
Author Organization [facility] Address [address] [place] [address] Care Team Providers Care Cornetist Name Role Phone Robby Villavicencio MD Primary Care Provider Encounter Details Date Type Department Care Team (Late st Contact Info) Description 01/10/[address] [facility] Internal Medicine [place] [address] [place] [address] Robby Villavicencio MD [address] [place] [address] Social History Tobacco Use Types Packs/Day Years Used Date Smoking Tobacco: Never Assessed Comments Unknown Sex and Gender Information Value Date Recorded Sex Assigned at Not on file Legal Sex Female 4:49 AM PRICING INTERN Gender Identity Not on file Sexual Orientation Not on file documented as of this encounter Plan of Treatment Not on file documented as of this encounter Visit Diagnoses Not on filedocumented in this encounter Care Teams Cornetist Relationship Specialty Start Date End Date Robby Villavicencio MD [address] [place] [address] PCP - General 02/06/06 01/13/10 documented as of this encounter
--- OUTSIDE RECORDS SUMMARY | 2025-04-06 07:43 | XMS_ITS | Encounter Summary ---
Author Organization [facility] Address [address] [place] [address] Care Team Providers Care Gear Repair Supervisor Name Role Phone Robby Villavicencio MD Primary Care Provider [phone] Encounter Details Date Type Department Care Team (Latest Contact Info) Description 02/06/2006 Outpatient Historical [facility] [place] [facility] Robby Villavicencio MD [address] [place] [phone] Elevated Blood Pressure Reading without Diagnosis of Hypertension (Primary Dx) Social History Tobacco Use Types Packs/Day Years Used Date Smoking Tobacco: Never Assessed Comments Unknown Sex and Gender Information Value Date Recorded Sex Assigned at Not on file Legal Sex Female 4:49 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 de Phone Number INTERFACE SYSTEM Refer to [...] ORDERABLES Final Re sult Performing Organization Address [facility] de Phone Number INTERFACE SYSTEM Refer to clinic/hospital department * TSH REFLEXIVE (02/06/2006 8:24 AM CDT) TSH 1.95 0.27 - 4.20 uU/mL INTERFACE SYSTEM 02/06/2006 8:24 AM CDT Robby Villavicencio MD CHEMISTRY ORDERABLES Final Res ult Performing Organization Address [facility] Co de Phone Number INTERFACE SYSTEM Refer [...] classifications for lipids are available on the [facility] Intranet at: [email or web address] Select: Lab Policies and Procedures Select: Reference Ranges - Lipids 02/06/2006 8:24 AM CDT Robby Villavicencio MD CHEMISTRY ORDERABLES Final Res ult Performing Organization Address City/[facility] Co de Phone Number INTERFACE SYSTEM Refer [...] ORDERABLES Final Res ult Performing Organization Address [facility] Co de Phone Number INTERFACE SYSTEM Refer to clinic/hospital department documented in this encounter Visit Diagnoses Diagnosis Elevated blood pressure reading without diagnosis of hypertension- Primary documented in this encounter Care Teams Gear Repair Supervisor Relationship Specialty Start Date End Date Robby Villavicencio MD [address] [place] [phone] PCP - General 02/06/06 01/13/10 documented as of this encounter
--- OUTSIDE RECORDS SUMMARY | 2025-04-06 07:43 | XMS_ITS | Encounter Summary ---
Author Organization [facility] Address 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
--- OUTSIDE RECORDS SUMMARY | 2025-04-06 07:43 | XMS_ITS | Encounter Summary ---
Author Organization [facility] Address [address] [place] [address] Care Team Providers Care Podiatrist Orthopedic Name Role Phone Robby Villavicencio MD Primary Care Provider [phone] Encounter Details Date Type Department Care Team (Late st Contact Info) Description 12/03/2001 Outpatient Historical [facility] Internal Medicine [place] [address] [place] [address] Robby Villavicencio MD [address] [place] [address] Social History Tobacco Use Types Packs/Day Years Used Date Smoking Tobacco: Never Assessed Comments Unknown Sex and Gender Information Value Date Recorded Sex Assigned at Not on file Legal Sex Female 4:49 AM UC ARCHITECT Gender Identity Not on file Sexual Orientation Not on file documented as of this encounter Plan of Treatment Not on file documented as of this encounter Visit Diagnoses Not on filedocumented in this encounter Care Teams Podiatrist Orthopedic Relationship Specialty Start Date End Date Robby Villavicencio MD [address] [place] [address] PCP - General 02/06/06 01/13/10 documented as of this encounter
--- OUTSIDE RECORDS SUMMARY | 2025-04-06 07:43 | XMS_ITS | Encounter Summary ---
Author Organization [facility] Address 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
--- OUTSIDE RECORDS SUMMARY | 2025-04-06 07:43 | XMS_ITS | Encounter Summary ---
Author Organization [facility] Address 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
--- OUTSIDE RECORDS SUMMARY | 2025-04-06 07:43 | XMS_ITS | Encounter Summary ---
Author Organization [facility] Address 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
--- OUTSIDE RECORDS SUMMARY | 2025-04-06 07:43 | XMS_ITS | Encounter Summary ---
Author Organization [facility] Address 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
--- OUTSIDE RECORDS SUMMARY | 2025-04-06 07:43 | XMS_ITS | Encounter Summary ---
Author Organization [facility] Address 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
--- OUTSIDE RECORDS SUMMARY | 2025-04-06 07:43 | XMS_ITS | Encounter Summary ---
Author Organization [facility] Address 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
--- OUTSIDE RECORDS SUMMARY | 2025-04-06 07:43 | XMS_ITS | Clinical Summary ---
Author Organization [facility] Address [address] [place] [address] Care Team Providers Care Deaf And Hard Of Hearing Teacher Name Role Phone Unavailable Primary Care Provider [...] on file Legal Sex Female 4:49 AM DATA CENTER MANAGER Gender Identity Not on file Sexual Orientation [...] (1 - 1-dose 75+ series) 2026 Insurance [facility] OPTIONS PPO [id number]
--- OUTSIDE RECORDS SUMMARY | 2025-04-06 07:43 | XMS_ITS | Encounter Summary ---
Author Organization [facility] Address [address] [place] [address] Care Team Providers Care Data Lead Name Role Phone Robby Villavicencio MD Primary Care Provider [phone] Encounter Details Date Type Department Care Team (Late st Contact Info) Description 07/25/2005 Outpatient Historical [facility] Internal Medicine [place] [address] [place] [address] Robby Villavicencio MD [address] [place] [address] Social History Tobacco Use Types Packs/Day Years Used Date Smoking Tobacco: Never Assessed Comments Unknown Sex and Gender Information Value Date Recorded Sex Assigned at Not on file Legal Sex Female 4:49 AM INFORMATION COORDINATOR Gender Identity Not on file Sexual Orientation Not on file documented as of this encounter Plan of Treatment Not on file documented as of this encounter Visit Diagnoses Not on filedocumented in this encounter Care Teams Data Lead Relationship Specialty Start Date End Date Robby Villavicencio MD [address] [place] [address] PCP - General 02/06/06 01/13/10 documented as of this encounter
--- OUTSIDE RECORDS SUMMARY | 2025-04-06 07:43 | XMS_ITS | Encounter Summary ---
Author Organization [facility] Address [address] [place] [address] Care Team Providers Care Personal Clothing Laundry Aide Name Role Phone Robby Villavicencio MD Primary Care Provider [phone] Encounter Details Date Type Department Care Team (Late st Contact Info) Description 05/01/2000 Outpatient Historical [facility] Internal Medicine [place] [address] [place] [address] Robby Villavicencio MD [address] [place] [address] Social History Tobacco Use Types Packs/Day Years Used Date Smoking Tobacco: Never Assessed Comments Unknown Sex and Gender Information Value Date Recorded Sex Assigned at Not on file Legal Sex Female 4:49 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
== END 2025-04-06 07:41 | disposition home or self-care (01) ==
PROVIDERS: PCP Nurse Practitioner Family; Visit Provider Nurse Practitioner Family
DX: M75.121 Complete rotator cuff tear or rupture of right shoulder, not specified as traumatic (principal); M77.8 Other enthesopathies, not elsewhere classified; M75.31 Calcific tendinitis of right shoulder; S43.431A Superior glenoid labrum lesion of right shoulder, initial encounter; S43.401A Unspecified sprain of right shoulder joint, initial encounter; S46.291A Other injury of muscle, fascia and tendon of other parts of biceps, right arm, initial encounter; S46.191A Other injury of muscle, fascia and tendon of long head of biceps, right arm, initial encounter; X58.XXXA Exposure to other specified factors, initial encounter; M19.011 Primary osteoarthritis, right shoulder
CPT/HCPCS: 73221